=== PATIENT | male | born 1985 | race Caucasian/White ===

== ENCOUNTER 2018-10-03 01:36 | Outpatient (CLI) | payer BC, SELFPAY ==
[2018-10-03 10:55] LABS: HCT 39.9 % (40.0-50.0); HGB 14.5 g/dL (13.5-17.5); Mean Corp. HGB Concentration 36.3 g/dL (32.0-36.0); Mean Corpuscular Hemoglobin 32.5 pg (27.0-33.0); Mean Corpuscular Volume 89.5 fL (80-95); Mean Platelet Volume 10.2 fL (8.0-11.0); Platelet Count 222 x1000/uL (130-400); RBC 4.46 m/cumm (4.50-6.00); RBC Distribution Width 11.9 % (11.8-14.1)
[2018-10-03 13:09] LABS: ALT 70 U/L (12-78); AST 29 U/L (15-37); Albumin 4.3 g/dL (3.4-5.0); Alkaline Phosphatase 61 U/L (46-116); Anion Gap 10.1 mmol/L (3-11); BUN 13 mg/dL (7-18); Bilirubin, Total 0.3 mg/dL (0.2-1.0); CO2 26.9 mmol/L (21.0-32.0); Calcium 9.1 mg/dL (8.5-10.1); Calculated LDL 119; Chloride 105 mmol/L (98-107); Cholesterol 179 mg/dL (50-200); Glucose 93 mg/dL (70-100); HDL Cholesterol 45 mg/dL (40-60); Potassium 4.4 mmol/L (3.5-5.1); Sodium 142 mmol/L (136-145); Total Protein 6.8 g/dL (6.4-8.2); Triglyceride 77 mg/dL (30-150)
== END 2018-10-03 01:56 ==
PROVIDERS: PCP Emergency Medicine
DX: K21.9 Gastro-esophageal reflux disease without esophagitis (principal); N23 Unspecified renal colic; Z13.220 Encounter for screening for lipoid disorders
CPT/HCPCS: 36415; 80053; 80061; 83721; 85027

== ENCOUNTER 2020-06-24 15:58 | Outpatient (CLI) | payer BC, SELFPAY ==
--- NOTE | 2020-06-24 15:45 | RT.EKG_ITS ---
APPROVED REPORT Exam: Resting ECG Patient Location: O HR:58 bpm ECG Measurements Heart Rate 58 AXIS PA 146 P 31 QRSd 86 QRS 65 QT 375 T 39 QTc 369 Conclusion Sinus bradycardia...rate< 60 Normal Electrocardiogram
== END 2020-06-24 15:59 | disposition home or self-care (01) ==
LOC: DI.CM 16:00
PROVIDERS: PCP Emergency Medicine; Visit Provider Emergency Medicine
DX: R00.1 Bradycardia, unspecified (principal); R42 Dizziness and giddiness
CPT/HCPCS: 93010

== ENCOUNTER 2020-06-24 18:06 | Outpatient (REF) | payer BC, SELFPAY ==
[2020-06-24 22:13] LABS: HCT 42.2 % (40.0-50.0); HGB 15.2 g/dL (13.5-17.5); MCH 32.3 pg (27.0-33.0); MCV 89.8 fL (80-95); MPV 10.5 fL (8.0-11.0); Platelet Count 258 10^3/uL (130-400); RDW 11.2 % (11.8-14.1); RDW-SD 36.5 fL; WBC 6.78 10^3/uL (4.4-10.8)
[2020-06-24 22:13] LABS: Anion Gap 9.3 mmol/L (3-11); BUN 15 mg/dL (7-18); C-Reactive Protein 0.06 mg/dL (0.0-0.3); CO2 27.7 mmol/L (21.0-32.0); CREATININE 0.9 mg/dL (0.70-1.30); Calcium 9.3 mg/dL (8.5-10.1); Chloride 104 mmol/L (98-107); Glucose 89 mg/dL (74-106); Sodium 141 mmol/L (136-145)
== END 2020-06-24 18:07 | disposition home or self-care (01) ==
LOC: LBN 18:06
PROVIDERS: PCP Emergency Medicine; Visit Provider Emergency Medicine
DX: I10 Essential (primary) hypertension (principal); R55 Syncope and collapse
CPT/HCPCS: 80048; 85027; 86140

== ENCOUNTER 2020-06-29 04:57 | Outpatient (CLI) | payer BC, SELFPAY ==
--- NOTE | 2020-07-20 10:37 | W.ZIOMONITOR ---
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 ?The patient was in normal sinus rhythm for the majority of the recording with an average heart rate of 76 bpm. ?There was one episode of SVT which lasted a total of 3 beats. This was asymptomatic. There were 3 total PACs. ?There are no episodes of atrial fibrillation, no pauses greater than 3 seconds and no evidence of high degree heart block. ?There were no episodes of ventricular tachycardia nor any PVCs. ?There were 5 patient triggered events which were associated with sinus rhythm and sinus tachycardia.
== END 2020-06-29 04:58 | disposition home or self-care (01) ==
LOC: RT 04:58
PROVIDERS: PCP Emergency Medicine; Visit Provider Emergency Medicine
DX: R55 Syncope and collapse (principal)
CPT/HCPCS: 93246

== ENCOUNTER 2020-10-05 22:02 | Emergency (ER) | payer BC, SELFPAY ==
[2020-10-05] VITALS (22 sets, daily range): BP systolic 118–142; BP diastolic 66–91; PULSE 82–97; RESP 17–30; TEMP 37; O2SAT 96–98
--- NOTE | 2020-10-05 22:00 | RT.EKG_ITS ---
APPROVED REPORT Exam: Resting ECG Reason for Exam: chest pain Patient Location: E HR:90 bpm ECG Measurements Heart Rate 90 AXIS TN 159 P 48 QRSd 86 QRS 62 QT 314 T 23 QTc 384 Conclusion Sinus rhythm...normal P axis, V-rate 60- 99. No STEMI. I have reviewed and interpreted ECG and agree with software generated interpretation.
--- NOTE | 2020-10-05 22:15 | DI.RAD_ITS ---
Exam(s) XR CHEST 2V PA LATERAL EXAM: XR CHEST 2V PA LATERAL CLINICAL HISTORY: CP TECHNIQUE: 2D digital imaging was performed. COMPARISON: No exams were available for comparison FINDINGS: MEDIASTINUM: Normal. HEART: Normal. PULMONARY VASCULATURE: Normal. LUNGS: Clear. PLEURAL SPACE: No pleural effusion or pneumothorax. BONE:Within normal limits for the patient's age. OTHER FINDINGS:Normal. IMPRESSION: No acute pulmonary findings. DATA REPOSITORY: RADIATION DOSE DELIVERED:
--- NOTE | 2020-10-05 22:26 | ED.GENADUL_ITS ---
Discharge Plan Disposition Patient Disposition: HOME Condition: Good Discharge Details Clinical Impression: Chest pain Primary Care Provider: Amarjit Meza ED Provider: Chen Franklin Home Meds and New Rx's Prescriptions: Continued omeprazole 20 mg capsule,delayed release(DR/EC) 20 mg PO DAILY Qty: 90 RF: 3 Discharge Instructions Instructions: Chest Pain (ED) Additional Instructions: Work up for chest pain in the ED is negative and reassuring. But, you should follow up with PCP for consideration of outpatient stress testing. Return to ED for new/worse pain, shortness of breath, fainting, neurological changes. Referrals: Amarjit Meza, [Primary Care Provider] - Discharge Data Discharge Date/Time-TO BE ENTERED AT DEPARTURE: 10/06/20 02:30 Medical Decision Making Patient is a pleasant 35-year-old gentleman presenting today with chief complaint of chest pain. He reports that pain began approximately 1 hour prior to arrival while sitting in his truck talking to somebody. States that he had 3 separate episodes of chest pain both of which are very short-lived, approximately 4 seconds. Describes the pain as stabbing. Not exertional symptoms. States that he did attempt exertional strain by carrying out the garbage he do not have any onset of symptoms. Reports minimal discomfort currently. Denies any shortness of breath or difficulty breathing. Patient reports that he did receive the Chris COVID-19 vaccine this morning. Patient was scheduled to have sleep study this evening as there is concern for obstructive sleep apnea. Past medical history pertinent for alcohol intake above recommended sensible limits, GERD. No significant past family history. On exam, patient appears nontoxic. Vital signs are stable. Patient is PERC negative. Lungs are clear, normal cardiac exam. No lower extremity edema, no calf tenderness. 2+ distal pulses in all extremities. At this time, primary concern is for ACS although has not exertional nature is less consistent with this. No pain with palpation. PERC negative, do not feel that further evaluation for PE is warranted at this time. Pain is not consistent with dissection. No correlation with food. Patient does have a history of GERD but reports that this is very different. Plan to evaluate for potential ACS. Discussed this plan with the patient is agreement. Will give aspirin. EKG was obtained and reviewed by Dr. Arriaga. Patient is in a normal sinus rhythm with a rate of 90. No acute ischemic changes noted. Labs reviewed. No leukocytosis. Stable H&H. No significant electrolyte abnormalities. AST is elevated at 99. Initial troponin less than 0.05. Given the proximity to when the patient began having, plan for 3-hour troponin. Discussed this plan with the patient who is in agreement. Repeat troponin remains less than 0.05. Discussed these findings with the patie nt. Advised that work-up here is reassuring. However, I would like for him to follow-up with his primary care this week for reevaluation and discuss potential need for outpatient stress testing. Return precautions were discussed. All his questions and concerns were addressed and he has been plan. HPI General Mode of arrival: ambulatory . Date/Time Provider Initiated Documentation: 10/05/20 22:03 . Limitations to Documentation: no limitations . Information obtained by: patient, RN notes reviewed and old records reviewed . History of Present Illness 35 year old M presents to the emergency department with the chief complaint of CP, described as mild, with intensity rated at 1. Quality is described as sharp, and is localized to the chest. Patient reports no radiation. Patient started experiencing this hour(s) and it has been intermittent and now resolved. No relieving factors improve symptom(s), No exacerbating factors reported . Patient notes no other symptoms.. Patient did receive the following treatments prior to arrival, none Related Data Home Medications Medication Instructions Recorded Confirmed omeprazole 20 mg capsule,delayed 20 mg PO DAILY #90 cap 07/28/20 10/05/20 release Previous Rx's Medication Instructions Recorded omeprazole 20 mg capsule,delayed 20 mg PO DAILY #90 cap 07/28/20 release Allergies Allergy/AdvReac Type Severity Reaction Status Date / Time No Known Drug Allergies Allergy Verified 10/09/20 16:23 General Stated Complaint: Chest Pain FLY: 2 Review of Systems Constitutional Constitutional: Reports as per HPI, Denies chills, Denies fever(s), Denies headache(s), Denies lethargy and Denies poor appetite Eyes Eyes: Denies change in vision ENT Ears, Nose, Mouth, and Throat: Denies dizziness and Denies headache(s) Cardiovascular Cardiovascular: Reports as per HPI, Denies dyspnea and Denies dyspnea on exertion Respiratory Respiratory: Reports as per HPI, Denies chest congestion, Denies cough, Denies pain on inspiration, Denies pain with cough, Denies dyspnea, Denies dyspnea on exertion and Denies wheezing Gastrointestinal Gastrointestinal: Reports as per HPI, Denies abdominal pain, Denies diarrhea, Denies nausea and Denies vomiting Genitourinary Genitourinary: Denies system reviewed and no additional complaints, except as documented (denies change in urinary habits) Musculoskeletal Musculoskeletal: Reports as per HPI and Denies back pain Integumentary/Breasts Skin/Breast: Reports as per HPI and Denies rash Neurologic Neurologic: Reports as per HPI, Denies dizziness and Denies headache(s) Allergic/Immunologic Allergic/Immunologic: Denies wheezing PFSH Medical History GERD (gastroesophageal reflux disease) No response from Ranitadine BID Near syncope Ureteral colic Ureterolithiasis Family History (Updated 06/25/20 @ 09:26 by Alecia Souza) Mother No problems noted. Father Parkinson disease Brother Heart disease Grandfather Neoplasm LUNG Grandmother Neoplasm BREAST Social History Smoking/Tobacco Use Status: Former Tobacco Use Smokeless tobacco user: chewing tobacco Quit status: has quit before Second Hand Exposure: No Smoking risk assessment performed?: Yes Alcohol Intake: current Alcohol Intake frequency: 0-2 drinks per day Alcohol type: beer Drug use: Never Substance use type: does not use Household members: spouse Housing: house Do you need help understanding health information?: Rarely Pets and animals: Yes Pets and animals: cat(s) and dog(s) Sexually active: Yes Do you think of yourself as: straight/heterosexual Current gender identity: male What is your relationship status?: How often do you talk on the phone with friends or family?: twice per week How often do you get together with friends or relatives?: once per week How often do you attend hoahaoism or quaker services?: decline to answer Do you belong to any clubs or organized social groups?: no Panel score (0-1 are the most socially isolated patients): 2 What type of physical activity do you participate in: walking Duration: 30-45 minutes/day Frequency: 5-6 times per week [place]/Rastafari: No preference Special [place] needs: No Seatbelt use: always Helmet use: Yes Helmet use: always Drive intox or ride w/intox motor bus driver: No Do you feel safe at home: Yes Do you feel safe in your relationship?: Yes Exam Const General: cooperative, healthy appearing, comfortable, no acute distress and well developed Nutritional Appearance: average body habitus and well nourished Orientation: alert, awake and oriented x3 [facility] Head: normal to inspection Ears: hearing grossly normal bilaterally Mouth: moist mucous membranes Chest Chest: normal inspection of the chest, normal palpation of entire chest wall and no crepitus Resp Effort & Inspection: normal respiratory effort, able to speak in complete sentences and no respiratory distress Auscultation: clear to auscultation bilaterally, no rales, no rhonchi and no wheezes Cardio Rate: regular rate Rhythm: regular rhythm Heart Sounds: S1 normal and S2 normal GI Inspection: normal to inspection, no edema and non-distended Palpation: soft, no hepatosplenomegaly, not firm, no guarding, not rigid and nontender Auscultation: normal bowel sounds Back/Spine/Pelvis Back: no CVA tenderness Thoracic/Lumbar Spine: thoracic and lumbar spine normal to inspection Skin General skin exam: no rashes or lesions noted Trauma: no lacerations or abrasions Neuro General: patient alert, patient awake and patient oriented x3 Cognition: normal cognition Speech: speech normal Gait: normal gait Extrem General: normal to inspection, capillary refill normal, no pedal edema, no calf tenderness and normal gait Psych Appearance: grossly normal and well kempt Mental Status: mental status grossly normal Speech and Movement: speech and movement normal Course Vital Signs Vital signs: Vital Signs Temperature 37 C 10/05/20 22:12 Pulse 90 10/05/20 22:12 Respiratory Rate 10/05/20 22:12 Blood Pressure 138/91 H 10/05/20 22:12 Pulse Oximetry 97 10/05/20 22:12 Temperature 37 C 10/05/20 22:12 Temperature Source Skin 10/05/20 22:12 Pulse 90 10/05/20 22:12 Respiratory Rate 10/05/20 22:12 Respiratory Effort 10/05/20 22:15 Blood Pressure 138/91 H 10/05/20 22:12 Pulse Oximetry 97 10/05/20 22:12 Oxygen Delivery Method Room Air 10/05/20 22:12 Oxygen Flow Rate 0 10/05/20 22:12 Pain Level 1 10/05/20 22:12
[2020-10-05] MEDS: Aspirin 81 MG CHEW 324 MG CH (22:34)
[2020-10-05 22:37] LABS: Abs Immature Grans 0.03 10^3/uL (0.0-0.06); Absolute Basophil Count 0.03 10^3/uL (0.0-0.2); Absolute Lymphocyte Count 0.77 10^3/uL (1.2-3.4); Absolute Monocyte Count 0.44 10^3/uL (0.1-0.8); Absolute Neutrophil Count 4.23 10^3/uL (1.2-6.7); Basophils % 0.5; Eosinophils % 1.8; HGB 13.6 g/dL (13.5-17.5); Immature Grans % 0.5; Lymphocytes % 13.8; MCH 31.7 pg (27.0-33.0); MCHC 35.8 % (32.0-36.0); MCV 88.6 fL (80-95); MPV 9.6 fL (8.0-11.0); Monocytes % 7.9; Neutrophils % 75.5; Nucleated RBC 0 %; Platelet Count 197 10^3/uL (130-400); RBC 4.29 10^6/uL (4.36-5.78); RDW 11.3 % (11.8-14.1); RDW-SD 35.9 fL
[2020-10-05 22:53] LABS: INR 1.1 (0.9-1.1); Prothrombin Time 10.6 sec (9.3-11.0)
[2020-10-05 22:57] LABS: ALT 99 U/L (16-63); AST 31 U/L (15-37); Albumin 4.2 g/dL (3.4-5.0); Alkaline Phosphatase 70 U/L (46-116); Anion Gap 7.9 mmol/L (3-11); BUN 18 mg/dL (7-18); Bilirubin, Total 0.4 mg/dL (0.2-1.0); CO2 29.1 mmol/L (21.0-32.0); Chloride 104 mmol/L (98-107); Glucose 108 mg/dL (74-106); Magnesium 1.7 mg/dL (1.8-2.4); Potassium 3.7 mmol/L (3.5-5.1); Sodium 141 mmol/L (136-145); Total Protein 7.1 g/dL (6.4-8.2); Troponin I < 0.05 ng/mL (<0.06)
--- NOTE | 2020-10-05 23:22 | DI.VRAD_ITS ---
PROCEDURE INFORMATION: Exam: XR Chest Exam date and time: 10/05/2020 10:55 PM Age: 35 years old Clinical indication: Pain; Other: Not specified; Patient HX: Cp TECHNIQUE: Imaging protocol: XR of the chest. Views: 2 views. COMPARISON: No relevant prior studies available. FINDINGS: Lungs: No consolidation. Pleural spaces: Unremarkable. No pleural effusion. No pneumothorax. Heart/Mediastinum: Unremarkable. No cardiomegaly. Bones/joints: Unremarkable. IMPRESSION: No acute findings. Dictated and Authenticated by: Wilmer Montemayor MD. Ordering:JIM Siddiqui MD
[2020-10-06] VITALS (23 sets, daily range): BP systolic 116–133; BP diastolic 58–72; PULSE 71–91; RESP 17–25; O2SAT 91–97
[2020-10-06 01:45] LABS: Troponin I < 0.05 ng/mL (<0.06)
--- NOTE | 2020-10-06 02:00 | RT.EKG_ITS ---
APPROVED REPORT Exam: Resting ECG Reason for Exam: Patient Location: E HR:71 bpm ECG Measurements Heart Rate 71 AXIS GA 154 P 18 QRSd 81 QRS 63 QT 338 T 29 QTc 367 Conclusion Sinus rhythm...normal P axis, V-rate 60- 99 Normal Electrocardiogram
== END 2020-10-06 02:30 | disposition home or self-care (01) ==
PROVIDERS: Emergency Provider Physician Assistant; PCP Emergency Medicine
DX: R07.9 Chest pain, unspecified (principal)
CPT/HCPCS: 36415; 80053; 93005; 99285; 71046; 83735; 84484; 85025; 85610; 85730; 93010

== ENCOUNTER → 2022-04-01 11:57 | Outpatient (CLI) | payer BC, SELFPAY ==
--- NOTE | 2022-04-01 09:30 | DI.RAD_ITS ---
Exam(s) XR CHEST 2V PA LATERAL EXAM: XR CHEST 2V PA LATERAL CLINICAL HISTORY: R07.9-CHEST PAIN TECHNIQUE: 2D digital imaging was performed. COMPARISON: No exams were available for comparison FINDINGS: HEART: Normal size. Aorta: PULMONARY VASCULATURE: Normal. LUNGS: Clear. PLEURAL SPACE: No pleural effusion or pneumothorax. BONE:Unremarkable for age. IMPRESSION: No acute abnormality. DATA REPOSITORY: RADIATION DOSE DELIVERED:
--- NOTE | 2022-04-01 09:30 | DI.RAD_ITS ---
Exam(s) XR THORACIC SPINE COMPLETE EXAM: XR THORACIC SPINE COMPLETE CLINICAL HISTORY: Back/chest pain, M54.9-DORSALGIA, R07.9-CHEST PAIN. TECHNIQUE: 2D digital imaging was performed. Three views. COMPARISON: No exams were available for comparison FINDINGS: BONES: There is no fracture or destructive lesion. The vertebral bodies and posterior elements are un remarkable. ALIGNMENT: Within normal limits. DISKS: Interverebral disc spaces are maintained. SOFT TISSUE: Visualized lungs are clear. IMPRESSION: Unremarkable radiographs of the thoracic spine. DATA REPOSITORY: RADIATION DOSE DELIVERED:
--- NOTE | 2022-04-01 09:30 | DI.RAD_ITS ---
Exam(s) XR LUMBAR SPINE COMPLETE EXAM: XR LUMBAR SPINE COMPLETE CLINICAL HISTORY: Back/chest pain, M54.9-DORSALGIA, R07.9-CHEST PAIN. TECHNIQUE: 2D digital imaging was performed. Five views. COMPARISON: No exams were available for comparison FINDINGS: BONES: No fracture or destructive lesion. Vertebral body heights are maintained. No facet hypertroph y identified. DISKS: Intervertebral disc spaces are maintained. ALIGNMENT: Lumbar spinal alignment is within normal limits. SOFT TISSUE: Normal. IMPRESSION: Unremarkable radiographs of the lumbar spine. DATA REPOSITORY: RADIATION DOSE DELIVERED:
== END ==
PROVIDERS: PCP Family Medicine; Visit Provider Nurse Practitioner Family
DX: M54.9 Dorsalgia, unspecified (principal); R07.9 Chest pain, unspecified
CPT/HCPCS: 71046; 72072; 72110

== ENCOUNTER 2023-03-15 19:20 | Outpatient (CLI) | payer BC, SELFPAY ==
[2023-03-15 15:10] LABS: Hemoglobin A1C 5.4 % (<5.7)
[2023-03-15 15:37] LABS: Calculated LDL 134 mg/dL (<100); Cholesterol 227 mg/dL (<200); HDL Cholesterol 46 mg/dL (40-60); Triglyceride 238 mg/dL (<150)
== END 2023-03-15 19:21 | disposition home or self-care (01) ==
LOC: LBO 19:21
PROVIDERS: PCP Family Medicine; Visit Provider Family Medicine
DX: E78.5 Hyperlipidemia, unspecified (principal); E11.51 Type 2 diabetes mellitus with diabetic peripheral angiopathy without gangrene
CPT/HCPCS: 36415; 80061; 83036